=== PATIENT | female | born 1955 | race Caucasian/White ===

== ENCOUNTER 2021-09-22 08:27 | Inpatient (IN) ==
[~2021-09-22 08:27] MED LIST: Rocuronium 50 mg VIAL 10 mg/ml 5 ml VIAL (50 mg) ONE; Succinylcholine 200 mg VIAL 20 mg/ml 10 ml VIAL (200 mg) ONE
[2021-09-22] MEDS ORDERED: Rocuronium 50 mg VIAL 10 mg/ml 5 ml VIAL (50 mg) ONE (08:34)
[2021-09-22] MEDS ORDERED: Etomidate 40 mg/20 ml (2 MG/ML) 20 ml VIAL (40 mg) ONE (08:34)
[2021-09-22] MEDS ORDERED: Propofol 10 mg/ml 100 ML BTL 100 ML ONE ×2 (08:37→08:38)
[2021-09-22] MEDS ORDERED: Propofol 10 mg/ml 100 ML BTL 100 ML IV ONE (08:41)
[2021-09-22 08:52] LABS: ABS Eosinophils 0.2 10^3/ul (0-0.6); ABS Lymphocytes 1.2 10^3/ul (1.0-4.8); ABS Monocytes 0.5 10^3/ul (0-0.8); ABS Neutrophils 4.1 10^3/ul (1.5-7.7); Eosinophil % 2.6 %; Hematocrit 45 % (35-47); Hemoglobin 14.2 g/dL (12.0-16.0); Lymphocyte % 19.2 %; Mean Corpuscular HGB Conc 31 g/dL (31-36); Mean Corpuscular Hemoglobin 29 pg (27-31); Mean Corpuscular Volume 93 fL (80-97); Mean Platelet Volume 8.6 fL (7.4-10.4); Nucleated Red Blood Cells % 0.1; Platelet Count 161 10^3/uL (150-450); Red Blood Count 4.89 10^6 /uL (3.70-4.87); Red Cell Distribution Width 19 % (10-15)
[2021-09-22 09:01] LABS: Activated Partial Thrombo Time 30.7 seconds (26.0-38.0); INR 1.07 (0.86-1.15)
[2021-09-22] MEDS ORDERED: NS 0.9% 1000 ml BAG 1,000 ML IV ONE (09:02)
[2021-09-22 09:09] LABS: ALT 11 U/L (7-52); Albumin 3.3 g/dL (3.2-5.2); Albumin/Globulin Ratio 1.7 (1-3); Alkaline Phosphatase 89 U/L (35-149); Blood Urea Nitrogen 10 mg/dL (6-24); CO2 Carbon Dioxide 37 mmol/L (22-32); Calcium 7.9 mg/dL (8.6-10.3); Chloride 101 mmol/L (101-111); Cholesterol 129 mg/dL; Glucose 161 mg/dL (70-100); HDL Cholesterol 38.7 mg/dL; LDL Cholesterol 68 mg/dL; Sodium 140 mmol/L (135-145); Total Protein 5.3 g/dL (6.4-8.9); Triglycerides 113 mg/dL; eGFR CKD-EPI 101.3 (>60)
[2021-09-22 09:13] LABS: Troponin I 0.27 ng/mL (<0.03)
[2021-09-22 09:35] LABS: Alcohol, S < 13 mg/dL (<13)
[2021-09-22 09:39] LABS: PCO2 Arterial 68 mmHg (35-45); PO2 Arterial 141 mmHg (80-100)
[2021-09-22 09:45] LABS: Urine Appearance Cloudy; Urine Bilirubin Negative (Negative); Urine Blood Negative (Negative); Urine Color Amber; Urine Glucose Negative (Negative); Urine Ketones Negative (Negative); Urine Nitrite Negative (Negative); Urine Protein 2+(100 mg/dL) (Negative); Urine Specific Gravity 1.032 (1.002-1.030); Urine Urobilinogen Negative (Negative)
[2021-09-22] MEDS ORDERED: levETIRAcetam 1000MG IVPREMIX 1,000 MG/100 ML BAG IVPB ONE (09:48)
[2021-09-22] MEDS ORDERED: Vancomycin 1,000 MG in NS 0.9% 250 ml 250 ML IVPB ONE (09:50)
[2021-09-22] MEDS ORDERED: cefTRIAXone 2 GM ADDV.VIAL 2 GM in NS 0.9% 100 ml BAG 100 ML IVPB ONE (09:50)
[2021-09-22 09:51] LABS: Urine Bacteria Absent (Absent); Urine Red Blood Cell Absent (Absent); Urine Squamous Epithelial Cell Present (Absent); Urine White Blood Cell Absent (Absent)
[2021-09-22] MEDS ORDERED: ACYCLOVIR IVPB ONE ×2 (09:53→13:00)
[2021-09-22] MEDS ORDERED: NS 0.9% IVPB ONE ×2 (09:53→13:00)
[2021-09-22 09:55] LABS: Urine Benzodiazepine Screen None Detected (None Detect); Urine Cannabinoids Screen None Detected (None Detect); Urine Opiates Screen None Detected (None Detect)
[2021-09-22 10:01] LABS: Anion Gap 2 mmol/L (2-11)
[2021-09-22] MEDS ORDERED: NS 0.9% 50 ML 50 ML ONE (11:25)
[2021-09-22] MEDS ORDERED: methylPREDNISolone 125 mg 2 ML VIAL IV ONE (14:23)
[2021-09-22] MEDS ORDERED: Norepinephrine 16MCG/ML BAG NS 4,000 MCG/250 ML BAG IV ONE (15:33)
[2021-09-22] MEDS: Albuterol/Ipratropium NEB.SOL (2.5/0.5 MG) 3 ML NEB.SOLN INH SCH ×3 (15:56→23:50)
[2021-09-22] MEDS ORDERED: NORMOSOL-R pH 7.4 1000 mL BAG 1,000 ML IV SCH (16:00)
[2021-09-22] MEDS ORDERED: Norepinephrine 16MCG/ML BAG NS 4,000 MCG/250 ML BAG IV SCH (16:00)
[2021-09-22] MEDS: Chlorhexidine MOUTHWASH 0.12% 15 ML UDC TOPICAL SCH ×3 (16:20→19:58)
[2021-09-22] MEDS: Pantoprazole VIAL 40 MG VIAL IV SCH (16:20)
[2021-09-22] MEDS: Enoxaparin 40 MG/0.4 ML SYR SUBCUT SCH (16:20)
[2021-09-22 17:39] LABS: Potassium Redraw 1.6 mmol/L (3.5-5.0)
[2021-09-22 17:42] LABS: Troponin I 0.05 ng/mL (<0.03)
[2021-09-22 17:53] LABS: Potassium 1.5 mmol/L (3.5-5.0)
[2021-09-22] MEDS: KCL 10 MEQ/50 ML IVPREMIX 10 MEQ/50 ML BAG IV SCH ×2 (18:42→19:58)
[2021-09-22] MEDS: Mometasone/Formoter 200/5 MDI INH SCH (20:02)
[2021-09-22 20:44] LABS: Potassium, Whole Blood 4.7 mmol/L (3.4-4.5)
[2021-09-22] MEDS: methylPREDNISolone SOD 40 mg/ml 1 ml VIAL IV SCH (22:33)
[2021-09-22] MEDS: Propofol 10 mg/ml 100 ML BTL 100 ML IV SCH (23:00)
[2021-09-22] MEDS: Budesonide NEB 0.5 MG/2 ML NEB.SOLN INH SCH (23:50)
[2021-09-23] MEDS ORDERED: NS 0.9% 1000 ml BAG 1,000 ML IV SCH (01:45)
[2021-09-23] MEDS: Chlorhexidine MOUTHWASH 0.12% 15 ML UDC TOPICAL SCH ×5 (03:26→15:40)
[2021-09-23] MEDS: Propofol 10 mg/ml 100 ML BTL 100 ML IV SCH (03:27)
[2021-09-23] MEDS: Albuterol/Ipratropium NEB.SOL (2.5/0.5 MG) 3 ML NEB.SOLN INH SCH ×6 (04:16→22:56)
[2021-09-23 04:53] LABS: Hematocrit 47 % (35-47); Mean Corpuscular HGB Conc 32 g/dL (31-36); Mean Corpuscular Hemoglobin 29 pg (27-31); Mean Corpuscular Volume 90 fL (80-97); Red Blood Count 5.19 10^6 /uL (3.70-4.87); Red Cell Distribution Width 18 % (10-15); White Blood Count 9.6 10^3/uL (3.5-10.8)
[2021-09-23 04:54] LABS: ABS Lymphocytes 0.3 10^3/ul (1.0-4.8); ABS Monocytes 0.1 10^3/ul (0-0.8); ABS Neutrophils 9.2 10^3/ul (1.5-7.7); Lymphocyte % 3.2 %; Nucleated Red Blood Cells % 0.1
[2021-09-23 05:00] LABS: Blood Urea Nitrogen 12 mg/dL (6-24); CO2 Carbon Dioxide 31 mmol/L (22-32); Calcium 8.4 mg/dL (8.6-10.3); Chloride 101 mmol/L (101-111); Glucose 126 mg/dL (70-100); Magnesium 1.8 mg/dL (1.9-2.7); Sodium 139 mmol/L (135-145); eGFR CKD-EPI 104.8 (>60)
[2021-09-23] MEDS: methylPREDNISolone SOD 40 mg/ml 1 ml VIAL IV SCH ×3 (05:11→20:53)
[2021-09-23 05:19] LABS: Anion Gap 7 mmol/L (2-11)
[2021-09-23 05:24] LABS: Mean Platelet Volume 8.9 fL (7.4-10.4); Platelet Count 106 10^3/uL (150-450)
[2021-09-23 05:54] LABS: PCO2 Arterial 57 mmHg (35-45); PO2 Arterial 83 mmHg (80-100)
[2021-09-23 05:57] LABS: Potassium Redraw 4.4 mmol/L (3.5-5.0)
[2021-09-23] MEDS: Budesonide NEB 0.5 MG/2 ML NEB.SOLN INH SCH ×2 (07:17→19:03)
[2021-09-23] MEDS: Mometasone/Formoter 200/5 MDI INH SCH (08:22)
[2021-09-23] MEDS ORDERED: Magnesium Sulfate 2 gm BAG 2 GM/50 ML BAG IVPB ONE ×2 (10:02→21:09)
[2021-09-23] MEDS: Pantoprazole VIAL 40 MG VIAL IV SCH (13:00)
[2021-09-23] MEDS: Enoxaparin 40 MG/0.4 ML SYR SUBCUT SCH (13:01)
[2021-09-23] MEDS ORDERED: Lorazepam PYXIS KEY PRN (21:09)
[2021-09-23] MEDS: LORazepam 2 mg VIAL 1 ml IV PUSH PRN (21:29)
[2021-09-24] MEDS: Albuterol/Ipratropium NEB.SOL (2.5/0.5 MG) 3 ML NEB.SOLN INH SCH ×6 (02:52→22:46)
[2021-09-24] MEDS: methylPREDNISolone SOD 40 mg/ml 1 ml VIAL IV SCH ×2 (04:52→18:11)
[2021-09-24 05:09] LABS: ABS Lymphocytes 0.3 10^3/ul (1.0-4.8); ABS Monocytes 0.5 10^3/ul (0-0.8); ABS Neutrophils 9.4 10^3/ul (1.5-7.7); Hematocrit 41 % (35-47); Hemoglobin 13.5 g/dL (12.0-16.0); Lymphocyte % 3.3 %; Mean Corpuscular HGB Conc 33 g/dL (31-36); Mean Corpuscular Hemoglobin 29 pg (27-31); Mean Corpuscular Volume 89 fL (80-97); Mean Platelet Volume 8.6 fL (7.4-10.4); Platelet Count 179 10^3/uL (150-450); Red Blood Count 4.61 10^6 /uL (3.70-4.87); Red Cell Distribution Width 18 % (10-15); White Blood Count 10.2 10^3/uL (3.5-10.8)
[2021-09-24 05:30] LABS: Calcium 7.9 mg/dL (8.6-10.3); Magnesium 2.3 mg/dL (1.9-2.7); Phosphorus 2.3 mg/dL (2.5-5.0); Potassium 4.7 mmol/L (3.5-5.0); eGFR CKD-EPI 100.8 (>60)
[2021-09-24] MEDS: Budesonide NEB 0.5 MG/2 ML NEB.SOLN INH SCH ×2 (08:28→19:09)
[2021-09-24] MEDS: LORazepam 2 mg VIAL 1 ml IV PUSH PRN ×3 (11:44→21:55)
[2021-09-24] MEDS: Pantoprazole VIAL 40 MG VIAL IV SCH (13:00)
[2021-09-24] MEDS: Enoxaparin 40 MG/0.4 ML SYR SUBCUT SCH (13:00)
[2021-09-24] MEDS: DOXYcycline 100 MG in NS 0.9% 250 ml 250 ML IVPB SCH (13:02)
[2021-09-24] MEDS: cefTRIAXone 1 gm/50 mL NS BAG 1 GM/50 ML BAG IVPB SCH (13:05)
[2021-09-24 20:10] LABS: PO2 Arterial 157 mmHg (80-100)
[2021-09-24 20:24] LABS: PCO2 Arterial 76 mmHg (35-45)
[2021-09-24 22:38] LABS: PCO2 Arterial 62 mmHg (35-45); PO2 Arterial 66 mmHg (80-100)
[2021-09-25] MEDS: DOXYcycline 100 MG in NS 0.9% 250 ml 250 ML IVPB SCH ×2 (01:23→13:32)
[2021-09-25] MEDS: Albuterol/Ipratropium NEB.SOL (2.5/0.5 MG) 3 ML NEB.SOLN INH SCH ×2 (02:39→08:36)
[2021-09-25 04:48] LABS: ABS Lymphocytes 0.3 10^3/ul (1.0-4.8); ABS Monocytes 0.6 10^3/ul (0-0.8); ABS Neutrophils 7.1 10^3/ul (1.5-7.7); Hematocrit 40 % (35-47); Hemoglobin 12.9 g/dL (12.0-16.0); Mean Corpuscular HGB Conc 33 g/dL (31-36); Mean Corpuscular Hemoglobin 29 pg (27-31); Mean Corpuscular Volume 90 fL (80-97); Mean Platelet Volume 8.3 fL (7.4-10.4); Platelet Count 150 10^3/uL (150-450); Red Blood Count 4.44 10^6 /uL (3.70-4.87); Red Cell Distribution Width 18 % (10-15)
[2021-09-25 04:58] LABS: Calcium 7.8 mg/dL (8.6-10.3); Magnesium 1.8 mg/dL (1.9-2.7); Potassium 4.4 mmol/L (3.5-5.0)
[2021-09-25 05:04] LABS: Phosphorus 1.8 mg/dL (2.5-5.0); eGFR CKD-EPI 107.8 (>60)
[2021-09-25] MEDS: methylPREDNISolone SOD 40 mg/ml 1 ml VIAL IV SCH ×2 (06:18→16:20)
[2021-09-25] MEDS: Budesonide NEB 0.5 MG/2 ML NEB.SOLN INH SCH (08:36)
[2021-09-25] MEDS: LORazepam 2 mg VIAL 1 ml IV PUSH PRN ×3 (09:18→23:30)
[2021-09-25] MEDS: SPIRIVA Respimat (tiotropium) 2.5 mcg/inh Inhaler INH SCH (11:26)
[2021-09-25] MEDS: Albuterol HFA INHALER 8 gm MDI INH SCH ×3 (11:26→19:58)
[2021-09-25] MEDS: Enoxaparin 40 MG/0.4 ML SYR SUBCUT SCH (12:02)
[2021-09-25] MEDS: cefTRIAXone 1 gm/50 mL NS BAG 1 GM/50 ML BAG IVPB SCH (12:02)
[2021-09-25] MEDS: Pantoprazole VIAL 40 MG VIAL IV SCH (12:03)
[2021-09-25] MEDS ORDERED: Magnesium Sulfate 2 gm BAG 2 GM/50 ML BAG IVPB ONE (16:59)
[2021-09-25] MEDS: Mometasone/Formoter 200/5 MDI INH SCH (19:58)
[2021-09-26] MEDS: DOXYcycline 100 MG in NS 0.9% 250 ml 250 ML IVPB SCH ×2 (01:13→11:48)
[2021-09-26 04:52] LABS: ABS Lymphocytes 0.5 10^3/ul (1.0-4.8); ABS Monocytes 0.6 10^3/ul (0-0.8); ABS Neutrophils 6.5 10^3/ul (1.5-7.7); Hematocrit 40 % (35-47); Hemoglobin 12.9 g/dL (12.0-16.0); Mean Corpuscular HGB Conc 32 g/dL (31-36); Mean Corpuscular Hemoglobin 29 pg (27-31); Mean Corpuscular Volume 89 fL (80-97); Mean Platelet Volume 8.2 fL (7.4-10.4); Nucleated Red Blood Cells % 0.1; Platelet Count 142 10^3/uL (150-450); Red Blood Count 4.45 10^6 /uL (3.70-4.87); Red Cell Distribution Width 18 % (10-15); White Blood Count 7.7 10^3/uL (3.5-10.8)
[2021-09-26 05:09] LABS: Blood Urea Nitrogen 8 mg/dL (6-24); CO2 Carbon Dioxide 40 mmol/L (22-32); Calcium 8.1 mg/dL (8.6-10.3); Chloride 97 mmol/L (101-111); Glucose 104 mg/dL (70-100); Magnesium 1.9 mg/dL (1.9-2.7); Phosphorus 1.8 mg/dL (2.5-5.0); Potassium 4.5 mmol/L (3.5-5.0); Sodium 136 mmol/L (135-145); eGFR CKD-EPI 113.6 (>60)
[2021-09-26] MEDS ORDERED: methylPREDNISolone 125 mg 2 ML VIAL ONE (07:24)
[2021-09-26] MEDS: methylPREDNISolone SOD 40 mg/ml 1 ml VIAL IV SCH ×2 (07:26→17:22)
[2021-09-26] MEDS: Mometasone/Formoter 200/5 MDI INH SCH ×2 (08:30→19:25)
[2021-09-26] MEDS: Albuterol HFA INHALER 8 gm MDI INH SCH ×4 (08:30→19:26)
[2021-09-26] MEDS: SPIRIVA Respimat (tiotropium) 2.5 mcg/inh Inhaler INH SCH (08:30)
[2021-09-26] MEDS ORDERED: Potassium Phosphate IV 15 MMOLE in NS 0.9% 250 ml 250 ML IVPB ONE (08:40)
[2021-09-26] MEDS ORDERED: Magnesium Sulfate 2 gm BAG 2 GM/50 ML BAG IVPB ONE (08:40)
[2021-09-26] MEDS: cefTRIAXone 1 gm/50 mL NS BAG 1 GM/50 ML BAG IVPB SCH (10:55)
[2021-09-26] MEDS: Pantoprazole VIAL 40 MG VIAL IV SCH (11:48)
[2021-09-26] MEDS: Enoxaparin 40 MG/0.4 ML SYR SUBCUT SCH (11:48)
[2021-09-27] MEDS: DOXYcycline 100 MG in NS 0.9% 250 ml 250 ML IVPB SCH ×2 (00:32→14:02)
[2021-09-27 07:43] LABS: Calcium 8.3 mg/dL (8.6-10.3); Magnesium 1.8 mg/dL (1.9-2.7); Phosphorus 2.4 mg/dL (2.5-5.0); Potassium 4.3 mmol/L (3.5-5.0); eGFR CKD-EPI 108.4 (>60)
[2021-09-27] MEDS ORDERED: methylPREDNISolone SOD 40 mg/ml 1 ml VIAL IV SCH (09:00)
[2021-09-27] MEDS: Albuterol HFA INHALER 8 gm MDI INH SCH ×4 (09:02→19:07)
[2021-09-27] MEDS: Mometasone/Formoter 200/5 MDI INH SCH ×2 (09:04→19:07)
[2021-09-27] MEDS: SPIRIVA Respimat (tiotropium) 2.5 mcg/inh Inhaler INH SCH (09:04)
[2021-09-27 10:30] LABS: PO2 Arterial 149 mmHg (80-100)
[2021-09-27 10:34] LABS: PCO2 Arterial 84 mmHg (35-45)
[2021-09-27] MEDS: cefTRIAXone 1 gm/50 mL NS BAG 1 GM/50 ML BAG IVPB SCH (11:44)
[2021-09-27] MEDS: Pantoprazole VIAL 40 MG VIAL IV SCH (11:48)
[2021-09-27] MEDS: Enoxaparin 40 MG/0.4 ML SYR SUBCUT SCH (11:48)
[2021-09-27 13:06] LABS: PO2 Arterial 72 mmHg (80-100)
[2021-09-27 13:18] LABS: PCO2 Arterial 91 mmHg (35-45)
[2021-09-27] MEDS: LORazepam 2 mg VIAL 1 ml IV PUSH PRN (17:18)
[2021-09-28] MEDS: DOXYcycline 100 MG in NS 0.9% 250 ml 250 ML IVPB SCH ×2 (01:03→12:34)
[2021-09-28 05:59] LABS: Blood Urea Nitrogen 11 mg/dL (6-24); Calcium 8.4 mg/dL (8.6-10.3); Chloride 93 mmol/L (101-111); Glucose 97 mg/dL (70-100); Magnesium 1.7 mg/dL (1.9-2.7); Sodium 135 mmol/L (135-145); eGFR CKD-EPI 109.8 (>60)
[2021-09-28 06:10] LABS: Anion Gap 1 mmol/L (2-11); CO2 Carbon Dioxide 41 mmol/L (22-32)
[2021-09-28 06:22] LABS: ABS Eosinophils 0.1 10^3/ul (0-0.6); ABS Lymphocytes 1.1 10^3/ul (1.0-4.8); ABS Monocytes 0.8 10^3/ul (0-0.8); ABS Neutrophils 7.3 10^3/ul (1.5-7.7); Eosinophil % 0.8 %; Hematocrit 47 % (35-47); Hemoglobin 15.1 g/dL (12.0-16.0); Lymphocyte % 12.1 %; Mean Corpuscular HGB Conc 32 g/dL (31-36); Mean Corpuscular Hemoglobin 29 pg (27-31); Mean Corpuscular Volume 90 fL (80-97); Mean Platelet Volume 9.1 fL (7.4-10.4); Platelet Count 122 10^3/uL (150-450); Red Blood Count 5.24 10^6 /uL (3.70-4.87); Red Cell Distribution Width 17 % (10-15); White Blood Count 9.3 10^3/uL (3.5-10.8)
[2021-09-28 06:57] LABS: Phosphorus 2.5 mg/dL (2.5-5.0); Potassium Redraw 4.4 mmol/L (3.5-5.0)
[2021-09-28] MEDS ORDERED: Magnesium Sulfate IV 3 GM in NS 0.9% 100 ml BAG 100 ML IVPB ONE (07:14)
[2021-09-28] MEDS: Albuterol HFA INHALER 8 gm MDI INH SCH ×2 (08:08→13:26)
[2021-09-28] MEDS: SPIRIVA Respimat (tiotropium) 2.5 mcg/inh Inhaler INH SCH (08:09)
[2021-09-28] MEDS: Mometasone/Formoter 200/5 MDI INH SCH ×2 (08:09→19:06)
[2021-09-28 08:14] LABS: PO2 Arterial 132 mmHg (80-100)
[2021-09-28 08:23] LABS: PCO2 Arterial 85 mmHg (35-45)
[2021-09-28] MEDS: hydrALAZINE 20 mg/ml 1 ML Vial IV IV SLOW PU PRN (09:56)
[2021-09-28] MEDS: cefTRIAXone 1 gm/50 mL NS BAG 1 GM/50 ML BAG IVPB SCH (12:00)
[2021-09-28] MEDS: Pantoprazole VIAL 40 MG VIAL IV SCH (12:34)
[2021-09-28] MEDS: Enoxaparin 40 MG/0.4 ML SYR SUBCUT SCH (12:34)
[2021-09-28] MEDS ORDERED: Albuterol HFA INHALER 8 gm MDI INH PRN (13:26)
[2021-09-29] MEDS: DOXYcycline 100 MG in NS 0.9% 250 ml 250 ML IVPB SCH ×2 (01:15→13:15)
[2021-09-29] MEDS: LORazepam 2 mg VIAL 1 ml IV PUSH PRN ×2 (03:24→21:46)
[2021-09-29] MEDS: SPIRIVA Respimat (tiotropium) 2.5 mcg/inh Inhaler INH SCH (07:16)
[2021-09-29] MEDS: Mometasone/Formoter 200/5 MDI INH SCH ×2 (07:16→18:58)
[2021-09-29 09:57] LABS: Hematocrit 44 % (35-47); Hemoglobin 14.4 g/dL (12.0-16.0); Mean Corpuscular HGB Conc 33 g/dL (31-36); Mean Corpuscular Hemoglobin 29 pg (27-31); Mean Corpuscular Volume 90 fL (80-97); Mean Platelet Volume 8.5 fL (7.4-10.4); Platelet Count 169 10^3/uL (150-450); Red Blood Count 4.91 10^6 /uL (3.70-4.87); Red Cell Distribution Width 18 % (10-15); White Blood Count 7.5 10^3/uL (3.5-10.8)
[2021-09-29 10:05] LABS: Calcium 8.4 mg/dL (8.6-10.3); Magnesium 1.8 mg/dL (1.9-2.7); Phosphorus 2.6 mg/dL (2.5-5.0); eGFR CKD-EPI 107.8 (>60)
[2021-09-29] MEDS ORDERED: Magnesium Sulfate 2 gm BAG 2 GM/50 ML BAG IVPB ONE (11:47)
[2021-09-29] MEDS: cefTRIAXone 1 gm/50 mL NS BAG 1 GM/50 ML BAG IVPB SCH (11:52)
[2021-09-29] MEDS: Pantoprazole VIAL 40 MG VIAL IV SCH (11:52)
[2021-09-29] MEDS: Enoxaparin 40 MG/0.4 ML SYR SUBCUT SCH (11:52)
[2021-09-29] MEDS: hydrALAZINE 20 mg/ml 1 ML Vial IV IV SLOW PU PRN (22:30)
[2021-09-30] MEDS: DOXYcycline 100 MG in NS 0.9% 250 ml 250 ML IVPB SCH ×2 (00:38→14:45)
[2021-09-30] MEDS: SPIRIVA Respimat (tiotropium) 2.5 mcg/inh Inhaler INH SCH (08:35)
[2021-09-30] MEDS: Mometasone/Formoter 200/5 MDI INH SCH (08:36)
[2021-09-30] MEDS: Enoxaparin 40 MG/0.4 ML SYR SUBCUT SCH (13:34)
[2021-09-30] MEDS: cefTRIAXone 1 gm/50 mL NS BAG 1 GM/50 ML BAG IVPB SCH (13:34)
[2021-09-30 14:42] VITALS: BP 146/74
[2021-09-30] MEDS ORDERED: COVID-19 VACCINE, MRNA(MODERNA)/PF 100 MCG/0.5 ML IM ONE (15:00)
== END 2021-09-30 15:30 | disposition home or self-care (01) | DRG 45 ==
LOC: ED 08:27 → ICU 09:20 → SUATTDRO 11:20 → EDHOLD 11:20 → ICU 13:57 → MEDTELE 09-26 23:48 → ICU 09-27 16:40
PROVIDERS: ADMIT Internal Medicine; ATTEND Internal Medicine